=== PATIENT | female | born 1985 | race Caucasian/White ===

== ENCOUNTER 2017-06-29 08:24 | Emergency (ER) | payer BC ==
--- OUTSIDE RECORDS SUMMARY | 2017-06-29 08:45 | XMS REPORT ---
:1985 External Reference #:[id number] Author Organization [facility] Address [address] [address] Phone [phone] Care Team Providers Name Role Phone Mary Gordon PA Care Team Information Curriculum Counselor Unavailable Payers Type Date Identification Numbers Payment Subscriber Provider Health Maintenance Effective: Policy Number: [employer] / Mandi Walters Organization (HMO) 12/12/2015 [id number] [place] Plan Group Number: [id number] [address] PayID: [id number] [place] [address] Medigap Part B Effective: Policy Number: BCBS Commercial Adriana Walters 12/11/2010 [id number] Expires: 12/11/2015 Group Number: [id number] [address] [address] PayID: [id number] [place] [id number] Problems Date Description Provider Status Onset: 02/26/2008 Allergic rhinitis due to pollen Jamshid Jones DO Active Onset: 08/24/2007 Acne Jamshid Jones DO Active Onset: 02/23/2007 Celiac disease Jamshid Jones DO Active Onset: 08/22/2006 Intrinsic asthma without status Jamshid Jones DO Active asthmaticus Onset: 03/17/2015 Asthma without status asthmaticus Jamshid Jones DO Active Family History Date Family Member(s) Problem(s) Comments Mother Cardiomyopathy First Sister Diabetes, Juvenile First Sister Celiac Disease Second Sister Celiac Disease Third Sister Celiac Disease Maternal Aunts Cancer, Colon Maternal Aunts Cancer, Breast Social History Type Date Description Comments Marital Status Single Lives With Alone 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 Medications Medication Date Status Form Strength Qnty SIG Indications Ordering Provider Escitalopram 06/10 Active Tablets 10mg 30tab 1 by mouth F41.1 Chavez, s every day DO Salomon Minocycline HCL 06/10 Active Capsules 100mg 180ca 1 by mouth L70.0 ps twice a day DO Salomon Ibuprofen Active Capsules 200mg 3-4 tabs by Unknown / mouth three times a day as needed with food or snack for pain Escitalopram 05/12 Hx Tablets 5mg 30tab 1 by mouth F41.1 Robert, s every day Jamshid, - DO 06/10 No Active 10/06 Hx Unknown Medications /2016 - 10/25 No Active 09/29 Hx Unknown Medications /2016 - 09/29 Nitrofurantoin 09/29 Hx Capsules 100mg 14cap 1 by mouth R30.0 Digiovann Monohyd s twice a day a, - for 7 days Adriana, 10/06 Carafate 07/27 Hx Suspension 1GM/10ML 420ml 10ml by K29.00 Robert mouth three Jamshid, - times a day DO 08/10 Omeprazole 06/[address] 20mg 60cap 1 by mouth K29.00 Robert, s twice a day Jamshid, - DO 09/14 Tobradex 09/14 Hx Suspension 0.3-0.1% 10ml 2 drops H10.9 Robert LEFT eye Jamshid, - three times DO 06/04 a day x days Nystatin-Triamci 11/05 Hx Cream 532348-6. 30gm apply to 782.1 Digiovann nolone 1Unit/GM- rash as a, - % needed Adriana, 08/10 Albuterol 04/13 Hx Nebulizer (2.5mg/3M 50uni 1 vial in Robert, L) 0.083% ts nebulizer Jamshid, - q4hr. prn DO 07/14 dx: asthma Pulmicort Hx Aerosol 180mcg/Ac 1 Unknown Flexhaler /0000 t inhalation - twice daily 07/14 Ventolin HFA Hx Aerosol 108mcg/Ac 1unit 2 puffs po Unknown /0000 t s q 4 hours - prn 07/14 Aspirin Adult Hx Tablets DR 81mg 1 po qd Unknown Low Strength /0000 - 11/05 Vitamin Hx Tablets 27-0.8mg 1 by mouth Unknown /0000 every day - 06/04 Iron Hx Tablets 28mg 1 by mouth Unknown /0000 every day - 06/04 Immunizations CPT Code Status Date Vaccine Reaction Lot # [id number] Given 03/13/2015 Fluvirin Immunization RECEIVED AT [facility] [id number] Given 03/15/2014 Tdap (Adacel) Ages 7 And Above Only [id number] Given 02/27/2009 Tdap (Adacel) Ages 7 And Above Only Vital Signs Date Vital Result Comment 06/10/2017 Weight 115.00 lb Heart Rate 96 /min BP Systolic 106 mmHg BP Diastolic 70 mmHg Respiratory Rate 16 /min Height 60.0 inches 5'0" 09/29/16 BMI (Body Mass Index) 22.5 kg/m2 05/12/2017 Weight 116.00 lb Heart Rate 108 /min BP Systolic 128 mmHg BP Diastolic 74 mmHg Respiratory Rate 16 /min Height 60.0 inches 5'0" 09/29/16 BMI (Body Mass Index) 22.7 kg/m2 10/25/2016 Body Temperature 98.8 F Weight 109.31 lb Heart Rate 88 /min BP Systolic 114 mmHg BP Diastolic 60 mmHg Respiratory Rate 16 /min Height 60.0 inches 5'0" 09/29/16 BMI (Body Mass Index) 21.3 kg/m2 09/29/2016 Body Temperature 99.5 F Weight 108.00 lb Heart Rate 72 /min BP Systolic 118 mmHg BP Diastolic 68 mmHg Respiratory Rate 18 /min Height 60.0 inches 5'0" 09/29/16 BMI (Body Mass Index) 21.1 kg/m2 08/10/2016 Weight 111.00 lb Heart Rate 66 /min BP Systolic 102 mmHg BP Diastolic 70 mmHg Respiratory Rate 18 /min 07/27/2016 Weight 106.00 lb Heart Rate 78 /min BP Systolic 120 mmHg BP Diastolic 80 mmHg Respiratory Rate 18 /min Height 60 inches 5'0" BMI (Body Mass Index) 20.7 kg/m2 06/15/2016 Weight 115.00 lb Heart Rate 78 /min BP Systolic 120 mmHg BP Diastolic 74 mmHg Respiratory Rate 14 /min Height 60 inches 5'0" BMI (Body Mass Index) 22.5 kg/m2 06/04/2016 Weight 114.00 lb Heart Rate 84 /min BP Systolic 116 mmHg BP Diastolic 60 mmHg Respiratory Rate 14 /min Height 60 inches 5'0" O2 % BldC Oximetry 98 % On room air O2 Saturation Level with Exercise 99 % On room air BMI (Body Mass Index) 22.3 kg/m2 09/15/2015 Weight 123.00 lb BP Systolic 118 mmHg BP Diastolic 70 mmHg Height 60 inches 5'0" BMI (Body Mass Index) 24.0 kg/m2 08/08/2015 Weight 136.00 lb Heart Rate 78 /min BP Systolic 120 mmHg BP Diastolic 70 mmHg Respiratory Rate 18 /min Height 60 inches 5'0" BMI (Body Mass Index) 26.6 kg/m2 11/05/2014 Body Temperature 99.0 F Weight 114.00 lb BP Systolic 110 mmHg BP Diastolic 64 mmHg Respiratory Rate 18 /min Height 60 inches 5'0" BMI (Body Mass Index) 22.3 kg/m2 05/08/2014 Body Temperature 99.1 F Weight 118.00 lb Heart Rate 72 /min BP Systolic 110 mmHg BP Diastolic 70 mmHg Respiratory Rate 18 /min Height 60.5 inches 5'0.50" O2 % BldC Oximetry 98 % Ra 03/15/2014 Weight 114.00 lb Heart Rate 78 /min BP Systolic 112 mmHg BP Diastolic 80 mmHg Respiratory Rate 24 /min 03/14/2013 BP Systolic 100 mmHg BP Diastolic 70 mmHg 03/14/2013 Weight 103.00 lb Heart Rate 72 /min 72 Reg BP Systolic 108 mmHg BP Diastolic 70 mmHg Respiratory Rate 18 /min 11/21/2012 Body Temperature 99.6 F Motrin This Am Weight 107.00 lb Heart Rate 72 /min BP Systolic 100 mmHg BP Diastolic 62 mmHg Respiratory Rate 18 /min Results Test Date Test Result H/L Range Note Laboratory test 10/25/2016 Throat Culture Microbiology res 1 finding <SEE NOTE> Laboratory test 09/29/2016 Urine Culture Microbiology res 2 finding <SEE NOTE> Laboratory test 08/03/2016 H. Pylori Stool SEE NOTE 3, 4 finding Ag Ua RFX Micro & 07/26/2016 Urine Color YELLOW Yellow 5 Culture II Urine Clarity CLEAR Clear 5 Urine Glucose - Dipstick NEGATIVE mg/dL Negative 5 Urine Bilirubin - Dipstick NEGATIVE Negative 5 Urine Ketone NEGATIVE mg/dL Negative 5 Urine Specific [place] 1.020 1.010-1.030 5 Urine Blood NEGATIVE Negative 5 Urine PH 7.0 6.5-7.5 5 Urine Protein - Dipstick NEGATIVE mg/dL Negative 5 Urine Urobilinogen - Dipstick 0.2 E.U./dL 0.2-1.0 5 Urine Nitrite - Dipstick NEGATIVE Negative 5 Urine Leuk Esterase NEGATIVE Negative 5 Source: URINE, CLEAN CAT <SEE NOTE> 5, 6 Comprehensive Metabolic Panel 07/26/2016 Glucose 96 mg/dL 74-106 5 BUN 15 mg/dL 7-18 5 Creatinine 0.6 mg/dL 0.6-1.3 5 Glom Filtration Rate, Estimate >60 mL/min >60 5 If >60 mL/min >60 5, 7 BUN/Creat 25.0 ratio 5 Sodium 143 mmol/L 136-145 5 Potassium 3.7 mmol/L 3.5-5.1 5 Chloride 108 mmol/L High 98-107 5 Carbon Dioxide 25 mmol/L 21-32 5 Anion Gap 10 mEq/L 8-16 5 Calcium 8.8 mg/dL 8.5-10.1 5 Total Protein 7.7 g/dL 6.4-8.2 5 Albumin 4.2 g/dL 3.4-5.0 5 Globulin 3.5 g/dL 1.9-4.3 5 Alb/Glob 1.2 ratio 5 Bilirubin,Total 0.4 mg/dL 0.2-1.0 5 Sgot/Ast 118 U/L High 15-37 5 SGPT/Alt 77 U/L 12-78 5 Alkaline Phosphatase 112 U/L 45-117 5 Laboratory test finding 07/26/2016 Lipase 240 U/L 73-393 5 HCG,Serum (Qualitative) NEGATIVE (Negative) 5 CBS W/Automated Diff 07/26/2016 White Blood Count 10.0 K/uL 3.1-10.7 5 Red Blood Count 4.59 M/uL 3.90-5.40 5 Hemoglobin 13.3 gm/dL 11.6-15.8 5 Hematocrit 41.0 % 36.0-46.1 5 Mean Cell Volume 89.3 fl 80.9-99.0 5 Mean Corpuscular HGB 29.0 pg 25.9-32.7 5 Mean Corpuscular HGB Conc 32.4 g/dL 30.8-34.3 5 Platelet Count 272 K/uL 150-400 5 Red Cell Distri Width SD 39.9 fl 3-47 5 Red Cell Distri Width %CV 12.5 % 11.7-14.4 5 Mean Platelet Volume 10.4 fL 8.9-12.4 5 Neut% 79.2 % High 40.4-72.8 5 Lymph % 15.8 % Low 20.0-42.0 5 [place] % 4.2 % Low 4.3-13.2 5 Eo% 0.6 % 0.0-6.6 5 Bas% 0.2 % 0.0-1.1 5 Neut# 7.91 K/uL High 1.8-7.0 5 Lymph # 1.58 K/uL 1.0-4.0 5 [place] # 0.42 K/uL 0.3-0.9 5 Eos # 0.06 K/uL 0.0-0.5 5 Baso # 0.02 K/uL 0.0-0.1 5 Slide Review 07/26/2016 Slide Review (SEE NOTE) 5, 8 Laboratory test finding 06/04/2016 Troponin I <0.06 ng/mL (0.00-0.10) 9, 10 Laboratory test finding 06/04/2016 CPK 104 U/L 12-199 9 Esr 6 mm/hr 0-20 9 Lipase 66 U/L 11-82 9 Amylase 39 U/L 29-103 9 Comprehensive Metabolic (CMP) 06/04/2016 Sodium 141 mmol/L 134-142 9 Potassium 4.2 mmol/L 3.5-5.2 9 Chloride 105 mmol/L 97-109 9 Carbon Dioxide 29 mmol/L 24-34 9 Glucose 58 mg/dL Low 70-105 9 BUN 19 mg/dL 6-26 9 Creatinine 0.8 mg/dL 0.5-1.4 9 Calcium 9.3 mg/dL 8.5-10.2 9 Total Protein 6.9 g/dL 6.0-8.0 9 Albumin 4.7 g/dL 3.6-4.9 9 Globulin 2.2 g/dL 2.0-3.5 9 A/G Ratio 2.1 Ratio 1.0-2.2 9 Total Bilirubin 0.4 mg/dL 0.1-1.3 9 Alkaline Phosphatase 56 U/L 24-140 9 Alt 48 U/L High 3-42 9 Ast 25 U/L 8-42 9 Anion Gap 11 mmol/L 6-14 9 Laisha Egfr >60 >60 9, 11 Non Laisha Egfr >60 >60 9, 12 CBC With Auto Diff 06/04/2016 WBC 4.7 K/uL 4.1-11.0 9 RBC 4.29 M/uL 4.00-5.40 9 Hemoglobin 12.4 gm/dL 12.0-16.0 9 Hematocrit 38.4 % 36.0-47.0 9 MCV 89.6 fL 80.0-97.0 9 MCH 29.0 pg 27.0-32.0 9 MCHC 32.4 g/dL 32.0-36.0 9 RDW 13.4 % 11.5-14.5 9 PLT Count 283 K/ul 140-400 9 Neutrophil 46.5 % 35.0-75.0 9 Lymphocyte 45.0 % 16.0-52.0 9 Monocyte 6.0 % 2.0-10.0 9 Eosinophil 1.6 % 0.0-5.0 9 Basophil 0.9 % 0.0-4.0 9 Abs Neutrophils 2.2 K/uL 2.1-8.0 9 Abs Lymphocytes 2.1 K/uL 0.8-5.5 9 Abs Monocytes 0.3 K/uL 0.1-1.0 9 Abs Eosinophils 0.1 K/uL 0.0-0.5 9 Abs Basophils 0.0 K/uL 0.0-0.3 9 Laboratory test finding 11/01/2013 Alb/Glob 0.9 ratio Albumin 3.4 g/dL Low 3.5-5.0 Alkaline Phosphatase 62 U/L 50-136 Anion Gap 9 mEq/L 8-16 BUN 9 mg/dL 5-23 BUN/Creat 22.5 ratio Bilirubin,Total 0.2 mg/dL 0.2-1.2 Calcium 8.5 mg/dL 8.5-10.1 Carbon Dioxide 25 mEq/L 18-29 Chloride 106 mmol/L 98-107 Creatinine 0.4 mg/dL Low 0.5-1.4 Globulin 3.7 g/dL 1.9-4.3 Glom Filtration Rate, Estimate >60 mL/min >60 Glucose 82 mg/dL 76-115 If >60 mL/min >60 13 Potassium 3.2 mmol/L Low 3.5-5.1 SGPT/Alt 21 U/L Low 30-65 Sgot/Ast 17 U/L 16-40 Sodium 137 mmol/L 136-145 Total Protein 7.1 g/dL 6.3-8.0 CBS W/Automated Diff 11/01/2013 Bas% 0.2 % 0.0-1.1 Baso # 0.02 K/uL 0.0-0.1 Eo% 1.4 % 0.0-6.6 Eos # 0.16 K/uL 0.0-0.5 Hematocrit 31.5 % Low 36.0-46.1 Hemoglobin 10.3 gm/dL Low 11.6-15.8 Lymph # 3.34 K/uL 0.8-3.4 Lymph % 28.8 % 17.0-46.1 Mean Cell Volume 95.5 fl 80.9-99.0 Mean Corpuscular HGB 31.2 pg 25.9-32.7 Mean Corpuscular HGB Conc 32.7 g/dL 30.8-34.3 Mean Platelet Volume 10.4 fL 8.9-12.4 [place] # 0.69 K/uL 0.3-0.9 [place] % 6.0 % 4.3-13.2 Neut# 7.37 K/uL High 1.0-7.0 Neut% 63.6 % 40.4-72.8 Platelet Count 272 K/uL 155-360 Red Blood Count 3.30 M/uL Low 3.90-5.40 Red Cell Distri Width %CV 14.0 % 11.7-14.4 Red Cell Distri Width SD 47.2 fl High 3-47 White Blood Count 11.6 K/uL High 3.1-10.7 Urine Screen 11/01/2013 Urine Bilirubin - Dipstick Negative Negative Urine Blood Negative Negative Urine Clarity SL Cloudy Clear Urine Color Yellow Yellow Urine Glucose - Dipstick Negative mg/dL Negative Urine Ketone 15 mg/dL High Negative Urine Leuk Esterase Negative Negative Urine Nitrite - Dipstick Negative Negative Urine PH 7.5 6.5-7.5 Urine Protein - Dipstick Negative mg/dL Negative Urine Specific [place] 1.010 1.010-1.030 Urine Urobilinogen - Dipstick 0.2 E.U./dL 0.2-1.0 1 Microbiology results RESULT Normal throat александр.No beta hemolytic streptococci isolated. 2 Microbiology results SOURCE Clean Catch Midstream FINAL RESULT Mixed urogenital александр consistent with contamination. Request fresh specimen if indicated. 3 Pt picked up stool kit 07/27/16-VS 4 SPECIMEN DESCRIPTION STOOL RESULT NEGATIVE FOR H. PYLORI ANTIGEN BY EIA REPORT STATUS FINAL 08/04/2016 Unless otherwise specified, testing [place] [address] 5 DIFF BREATHING, LOW BACK/ABD PAIN, ANXIETY 6 URINE, CLEAN CATCH 7 Note: Persistent reduction for 3 months or more in an eGFR <60 mL/min/1.73 m2 defines CKD. Patients with eGFR values >/=60 mL/min/1.73 m2 may also have CKD if evidence of persistent proteinuria is present. The original MDRD equation for estimated GFR is not valid for patients less than 18 years of age. Additional information may be found at www.kdoqi.org. 8 Instrument flagged sample for slide review. Less than 10% Bands seen, no other immature WBC's seen. RBC morphology essentially normal. Platelet estimate=NORMAL 9 today --stat , call to [phone] 10 TROPONIN LEVELS TWO TIMES THE UPPER LIMIT OF NORMAL ARE MORE PREDICTIVE OF MYOCARDIAL INJURY THAN LESSER ELEVATIONS. (NE 361:9, 2009) Unless otherwise specified, testing performed [place] [address] 11 Concerning GFR Guidelines for Americans: Normal function or mild renal disease, if clinically at risk: >/=60 mL/min Moderately decreased: 30-59 Severely decreased: 15-29 Renal failure: <15 12 Concerning GFR Guidelines: Normal function or mild renal disease, if clinically at risk: >/=60 mL/min Moderately decreased: 30-59 Severely decreased: 15-29 Renal failure: <15 Glomerular Filtration Rate (GFR) is estimated based on the MDRD equation, which assumes a steady state for creatinine as recommended by the National Kidney Disease Education Program in conjunction with the National Institutes of Health and the National Kidney Foundation. Clinical conditions in which it may be necessary to measure GFR by using clearance methods include extremes of age and body size, severe malnutrition or obesity, diseases of skeletal muscle, paraplegia or quadriplegia, vegetarian diet, rapidly changing kidney function, and calculation of the dose of potentially toxic drugs that are excreted by the kidneys. 13 Note: Persistent reduction for 3 months or more in an eGFR <60 mL/min/ 1.73 m2 defines CKD. Patients with eGFR values >/=60 mL/min/1.73 m2 may also have CKD if evidence of persistent proteinuria is present. The original MDRD equation for estimated GFR is not valid for patients less than 18 years of age. Additional information may be found at www.kdoqi.org. Procedures Date CPT Code Description Status 07/27/2016 46717 Omt 1-2 Body Regions Completed 06/04/2016 56209 Measure Blood Oxygen Level Multiple Determinations Completed 06/04/2016 75105 Electrocardiogram Complete Completed 11/05/2008 Bone Mineral Density Test Completed Encounters Type Date Location Provider CPT E/M Dx Office Visit 05/12/2017 2:30p [facility] [place] [address] F41.1 Office Visit 10/25/2016 9:30a [facility] [place] [address] J02.9 Office Visit 09/29/2016 4:00p [facility] [address] R30.0 Office Visit 08/10/2016 10:00a [facility] [place] [address] K29.00 M54.9 Office Visit 07/27/2016 10:30a [facility] [place] [address] K29.00 M54.9 F41.1 Office Visit 06/15/2016 10:00a [facility] [address] R10.816 K80.00 Office Visit 06/04/2016 8:00a [facility] [address] R07.89 R10.816 Office Visit 09/15/2015 3:15p [facility] [place] [address] H10.9 Office Visit 08/08/2015 11:30a [facility] [place] [address] D48.5 Office Visit 11/05/2014 8:00a [facility] [place] [address] 782.1 Plan of Care Future Appointment(s):07/08/2017 3:15 pm - Mary Gordon PA at [facility]2016 - Mary Gordon, PAF41.1 Generalized anxiety disorderNew Medication: Escitalopram Oxalate 10 mgComments:Will increase to lexapro to 10 mgCaution black box warning worsening depressionAdvised may not notice improvement for first 2 weeksCall with any questions/concernsFollow up:4 [id number] Pain in LEFT finger(s)Comments:? early arthritisWill continue to monitorConsider checking x-raysL70.0 Acne vulgarisNew Medication:Minocycline HCL 100 mgComments: Will start on minocyclineAcne may worsen over first 4 weeksCall with questions/ concerns
[2017-06-29 09:01] VITALS: BP 119/76
--- NOTE | 2017-06-29 09:42 | UC ---
Upper Extremity HPI - HPI Summary HPI Summary: Pt RHD presents with left forearm pain. Pt was walking down steps yesterday holding . Pt slipped and struck left forearm. No other injuries. No strike head. No loc. No neck or back pain. No analgesia taken today. Pain increases with ROM. No paresthesia. No weakness. No wrist or elbow pain - all mid forearm pt's medications reviewed this visit - History of Current Complaint Chief Complaint: UCUpperExtremity Stated Complaint: LEFT ARM PAIN S/P FALL Time Seen by Provider: 06/29/17 09:33 Hx Obtained From: Patient Hx Last Menstrual Period: 2 weeks ?: No Onset/Duration: Gradual Onset - 3 Severity Currently: Mild Pain Intensity: 3 Location Of Pain: Is Discrete @ - left mid forearm Aggravating Factor(s): Movement - Allergies/Home Medications Allergies/Adverse Reactions: Allergies Allergy/AdvReac Type Severity Reaction Status Date / Time Penicillins Allergy Hives Verified 07/24/14 11:57 Home Medications: Home Medications Escitalopram Oxalate [Lexapro 10 mg] 10 mg PO QPM 06/29/17 [History Confirmed ] Ibuprofen TAB* [Motrin TAB* 600 MG] 600 mg PO ONCE PRN 06/29/17 [History Confirmed 06/29/17] Minocycline HCl 100 mg PO BID 06/29/17 [History Confirmed 06/29/17] PMH/Surg Hx/FS Hx/Imm Hx Previously Healthy: Yes - Surgical History Surgical History: Yes Surgery Procedure, Year, and Place: cosmetic surgery; gallbladder 2017-[facility] - Family History Known Family History: Positive: None - Social History Occupation: Employed Full-time Lives: With Family Alcohol Use: Rare Substance Use Type: None Smoking Status (MU): Never Smoked Tobacco - Immunization History Most Recent Influenza Vaccination: March 2014 Review of Systems Constitutional: Negative Skin: Negative Musculoskeletal: Other: - left mid forearm All Other Systems Reviewed And Are Negative: Yes Physical Exam Triage Information Reviewed: Yes Appearance: Well-Appearing, No Pain Distress, Well-Nourished Vital Signs: Initial Vital Signs Temp 99.7 F 06/29/17 08:52 Pulse 79 06/29/17 08:52 Resp 18 06/29/17 08:52 BP 119/76 06/29/17 08:52 Eye Exam: Normal Eyes: Positive: Conjunctiva Clear ENT: Positive: Hearing grossly normal Neck exam: Normal Neck: Positive: Nontender Respiratory: Positive: No respiratory distress, No accessory muscle use Cardiovascular: Positive: Other: - 2+ radial, 2+ ulnar Abdominal Exam: Normal Musculoskeletal: Positive: Other: - + flex/ext elbow + flex/ext wrist + discomfort mid forearm with pronation/supination no crepitus, no defmority Pain with direct palp midforearm lateral aspect Neurological Exam: Normal Neurological: Positive: Other: - + thumb up, a ok finger spread, fnger cross Psychological Exam: Normal Diagnostics - Radiology No standard instances Radiology Interpretation Completed By: Radiologist - no fx Upper Extremity Course/Dx - Course Course Of Treatment: Pt with left forearm discomfort with slip and fall and direct trauma yesterday. pain wiht pronate/supinate and direct palp mid shaft forearm. no crepitus. imaging neg. sling for comfort. ice. motrin/apap. gentle sretching - Differential Dx/Diagnosis Provider Diagnoses: left forearm contusion Discharge - Discharge Plan Condition: Stable Disposition: HOME Patient Education Materials: Contusion in Adults (ED) Referrals: Mary Gordon PA [Primary Care Provider] - Additional Instructions: - okay to alternate ibuprofen (Advil, Motrin) and tylenol every 3 hours for pain. Take with food - wear arm sling for comfort- relax the weight of your arm in the sling - Take your arm out of the sling 2-3 times a day - slow gentle bend/straighten your elbow and your wrist - Apply ice (Wrapped in a towel) 20 minutes at a time, 2-3 times a day - Contact your doctor to schedule a follow-up appointment of you pain persists - Contact your doctor or return with questions or concerns
[2017-06-29] MEDS ORDERED: Ibuprofen TAB* 600 MG PO ONE (09:50)
--- NOTE | 2017-06-29 10:11 | RAD ---
HISTORY: Left forearm pain, trauma COMPARISONS: None VIEWS: 2, Frontal and lateral views of the left forearm FINDINGS: BONE DENSITY: Normal. BONES: There is no displaced fracture. JOINTS: There is no arthropathy. ALIGNMENT: There is no dislocation. SOFT TISSUES: Unremarkable. OTHER FINDINGS: None. IMPRESSION: NO ACUTE OSSEOUS INJURY. IF SYMPTOMS PERSIST, RECOMMEND REPEAT IMAGING.
== END 2017-06-29 10:33 | disposition home or self-care (01) ==
LOC: UCCORT 08:24
DX: S50.12XA Contusion of left forearm, initial encounter (principal); W01.198A Fall on same level from slipping, tripping and stumbling with subsequent striking against other object, initial encounter; Y93.89 Activity, other specified; Y92.9 Unspecified place or not applicable; Z90.49 Acquired absence of other specified parts of digestive tract; Z88.0 Allergy status to penicillin
CPT/HCPCS: 99212; A9270-GY; G0463

== ENCOUNTER 2018-07-24 11:54 | Emergency (ER) | payer BC ==
[2018-07-24 13:30] VITALS: BP 110/71
--- NOTE | 2018-07-24 13:45 | UC ---
FLU HPI - HPI Summary HPI Summary: 33 yo female presents with fatigue, headache, and body aches for the last 2 days. She is concerned she may have the flu and is requesting testing today. She is eating and drinking well, but says that she has a decreased appetite. Has not been taking anything OTC for her symptoms. Rest makes her feel better. Denies fever, chills, sore throat, cough, SOB, chest pain, abdominal pain, dysuria. - History of Current Complaint Chief Complaint: UCGeneralIllness Stated Complaint: CHILLS,FEVER,CONGESTION,FATIGUE Time Seen by Provider: 07/24/18 13:27 Hx Obtained From: Patient Hx Last Menstrual Period: 07/23/18 Onset/Duration: Sudden Onset Severity Currently: Moderate Severity Initially: Moderate Pain Intensity: 4 Pain Scale Used: 0-10 Numeric - Allergy/Home Medications Allergies/Adverse Reactions: Allergies Allergy/AdvReac Type Severity Reaction Status Date / Time Penicillins Allergy Hives Verified 07/24/18 13:27 Home Medications: Home Medications NK [No Home Medications Reported] 07/24/18 [History Confirmed 07/24/18] PMH/Surg Hx/FS Hx/Imm Hx - Additional Past Medical History Additional PMH: None - Surgical History Surgical History: Yes Surgery Procedure, Year, and Place: cosmetic surgery; gallbladder 2017-[facility] [place] - Family History Known Family History: Positive: None - Social History Occupation: Employed Full-time Lives: With Family Alcohol Use: Rare Substance Use Type: None Smoking Status (MU): Never Smoked Tobacco - Immunization History Most Recent Influenza Vaccination: March 2014 Review of Systems All Other Systems Reviewed And Are Negative: Yes Constitutional: Positive: Chills, Fatigue, Other - body aches Skin: Positive: Negative Eyes: Positive: Negative ENT: Positive: Negative Respiratory: Positive: Negative Cardiovascular: Positive: Negative Gastrointestinal: Positive: Negative Genitourinary: Positive: Negative Neurovascular: Positive: Negative Musculoskeletal: Positive: Negative Neurological: Positive: Headache Psychological: Positive: Negative Physical Exam - Summary Physical Exam Summary: GENERAL: NAD. WDWN. No pain distress. SKIN: No rashes, sores, lesions, or open wounds. HEENT: Head: AT/NC Eyes: EOM intact. Conjunctiva clear without inflammation or discharge. Ears: Hearing grossly normal. TMs intact, no bulging, erythema, or edema. Nose: Nasal mucosa pink and moist. NTTP maxillary and frontal sinus. Throat: Posterior oropharynx without exudates, erythema, or tonsillar enlargement. Uvula midline. NECK: Supple. Nontender. No lymphadenopathy. CHEST: CTAB. No r/r/w. No accessory muscle use. Breathing comfortably and in no distress. CV: RRR. Without m/r/g. Pulses intact. Cap refill <2seconds NEURO: Alert. PSYCH: Age appropriate behavior. Triage Information Reviewed: Yes Vital Signs: Initial Vital Signs Temp 99.2 F 07/24/18 13:25 Pulse 86 07/24/18 13:25 Resp 15 07/24/18 13:25 BP 110/71 07/24/18 13:25 Pulse Ox 100 07/24/18 13:25 Laboratory Tests 07/24/18 13:34 Influenza A (Rapid) Negative Influenza B (Rapid) Negative Vital Signs Reviewed: Yes Flu Course/Dx - Course Course Of Treatment: POC flu negative. Suspect viral illness. - Differential Dx/Diagnosis Provider Diagnosis: Viral syndrome Discharge - Sign-Out/Discharge Documenting (check all that apply): Patient Departure All imaging exams completed and their final reports reviewed: No Studies - Discharge Plan Condition: Stable Disposition: HOME Patient Education Materials: Viral Syndrome (ED) Referrals: Mary Gordon PA [Primary Care Provider] - Additional Instructions: If you develop a fever, shortness of breath, chest pain, new or worsening symptoms - please call your PCP or go to the ED. Rest and drink plenty of fluids. Recheck in 3-4 days if your symptoms have not improved - Billing Disposition and Condition Condition: STABLE Disposition: Home
[2018-07-24 13:47] LABS: Influenza A Molecular NEGATIVE (Negative); Influenza B Molecular NEGATIVE (Negative)
== END 2018-07-24 14:04 | disposition home or self-care (01) ==
LOC: UCCORT 11:54
DX: B34.9 Viral infection, unspecified (principal); R51 Headache; R53.83 Other fatigue; R63.8 Other symptoms and signs concerning food and fluid intake; R52 Pain, unspecified; Z88.0 Allergy status to penicillin
CPT/HCPCS: 99211; G0463